=== PATIENT | male | born 1950 | race Caucasian/White ===

== ENCOUNTER 2018-06-23 09:59 | Outpatient (CLI) | payer BC | END 2018-06-23 10:00 | disposition home or self-care (01) | LOC: RT 09:59 | PROVIDERS: ATTEND Internal Medicine Cardiovascular Disease | DX: I25.810 Atherosclerosis of coronary artery bypass graft(s) without angina pectoris (principal) | CPT/HCPCS: 93005 ==

== ENCOUNTER 2018-08-03 08:31 | Outpatient (CLI) | payer MEDICARE, OTHER ==
[2018-08-03 18:17] LABS: ALBUMIN 3.9 g/dL (3.2-5.5)
[2018-08-03 19:03] LABS: BILIRUBIN,DIRECT 0.1 mg/dL (0.1-0.5); BILIRUBIN,TOTAL 1.1 mg/dL (0.2-1.0); TOTAL PROTEIN 7.3 g/dL (6.7-8.2)
== END 2018-08-03 08:32 | disposition home or self-care (01) ==
LOC: LAB.F 08:31
PROVIDERS: ATTEND Registered Nurse
DX: R94.5 Abnormal results of liver function studies (principal)
CPT/HCPCS: 36415; 80076; 81256; 82728; 83540; 84466

== ENCOUNTER 2018-08-09 14:11 | Outpatient (CLI) | payer MEDICARE, OTHER | END 2018-08-09 14:12 | disposition home or self-care (01) | LOC: LAB.F 14:11 | PROVIDERS: ATTEND Registered Nurse | DX: R94.5 Abnormal results of liver function studies (principal) | CPT/HCPCS: 81256 ==

== ENCOUNTER 2019-11-28 07:12 | Outpatient (CLI) | payer MEDICARE, OTHER ==
[2019-11-28 15:09] LABS: ALBUMIN 3.9 g/dL (3.2-5.5); BILIRUBIN,DIRECT 0.2 mg/dL (0.1-0.5); TOTAL PROTEIN 7.4 g/dL (6.7-8.2)
== END 2019-11-28 07:13 | disposition home or self-care (01) ==
LOC: LAB.S 07:12
PROVIDERS: ATTEND Nurse Practitioner
DX: R74.8 Abnormal levels of other serum enzymes (principal)
CPT/HCPCS: 36415; 80076

== ENCOUNTER 2020-02-02 12:35 | Outpatient (CLI) | payer MEDICARE, OTHER ==
[2020-02-02 15:58] LABS: ALT ALANINE AMINOTRANSFERASE 150 IU/L (10-60); AST ASPARTATE AMINOTRANSFERASE 171 IU/L (10-42); CHOL/HDL RATIO 8.4 (<5.0); CHOLESTEROL 176 mg/dL; HDL CHOLESTEROL 21 mg/dL; LDL CHOLESTEROL,CALCULATED 100 mg/dL; LDL/HDL RATIO 4.8 (<3.6); VLDL CHOLESTEROL 55 mg/dL
== END 2020-02-02 12:36 | disposition home or self-care (01) ==
LOC: LAB.S 12:35
PROVIDERS: ATTEND Psychiatry & Neurology Psychiatry
DX: Z79.899 Other long term (current) drug therapy (principal)
CPT/HCPCS: 36415; 80061; 83721; 84450; 84460

== ENCOUNTER → 2021-10-13 | Outpatient (CLI) | payer MEDICARE, OTHER | END | disposition short-term general hospital (02) | LOC: EMS 20:53 | DX: R41.0 Disorientation, unspecified (principal); R53.83 Other fatigue; R50.9 Fever, unspecified; R19.5 Other fecal abnormalities; R11.10 Vomiting, unspecified; R10.11 Right upper quadrant pain; R00.0 Tachycardia, unspecified; I95.9 Hypotension, unspecified; S20.212A Contusion of left front wall of thorax, initial encounter; S40.012A Contusion of left shoulder, initial encounter; W19.XXXA Unspecified fall, initial encounter; Y92.008 Other place in unspecified non-institutional (private) residence as the place of occurrence of the external cause | CPT/HCPCS: A0425; A0427 ==